=== PATIENT | male | born 1945 ===

== ENCOUNTER 2018-03-24 18:16 | Emergency (ER) | payer MEDICARE ==
[2018-03-24 18:25] VITALS: RESP 18
--- NOTE | 2018-03-24 18:58 | ED ---
Male Urogenital HPI - General Chief complaint: Urogenital Stated complaint: Urinating blood Time Seen by Provider: 03/24/18 18:40 Source: patient, RN notes reviewed, old records reviewed Mode of arrival: ambulatory Limitations: no limitations - History of Present Illness Initial comments: This is a 72-year-old male the ER for evaluation of recent Miller catheter placement now hematuria. Patient has no history of hematuria, patient was told fully was placed for prostate type issues, patient does catheterize himself continually for increased post void volume. Patient denies any fevers no significant abdominal pain currently he just noticed blood in the urine this morning. Again patient is on blood thinners. MD Complaint: dysuria (Hematuria) -: hour(s) Location: abdomen (No pain) Radiation: none Severity: mild Severity scale (1-10): 2 Quality: aching Consistency: intermittent Improves with: urination Worsens with: none trauma (Miller placement), indwelling catheter Reports: blood in urine - Related Data Home Medications Medication Instructions Recorded Confirmed Apixaban [Eliquis] 5 mg PO BID 03/24/18 03/24/18 Atorvastatin [Lipitor] 20 mg PO HS 03/24/18 03/24/18 Enalapril [Vasotec] 5 mg PO DAILY 03/24/18 03/24/18 Allergies Allergy/AdvReac Type Severity Reaction Status Date / Time Sulfa (Sulfonamide Allergy Unknown Verified 03/24/18 18:30 Antibiotics) Review of Systems ROS Statement: Those systems with pertinent positive or pertinent negative responses have been documented in the HPI. ROS Other: All systems not noted in ROS Statement are negative. Past Medical History Additional Past Medical History / Comment(s): IDC Pt states he had a vertebre burst states he is numb in the left leg and hips. History of Any Multi-Drug Resistant Organisms: C-DIFF Date of last positivie culture/infection: 2008 MDRO Source:: stool Past Surgical History: Back Surgery Additional Past Surgical History / Comment(s): bilateral ankle repair Past Psychological History: No Psychological Hx Reported Smoking Status: Never smoker Past Alcohol Use History: Occasional Past Drug Use History: None Reported General Exam Limitations: no limitations General appearance: alert, in no apparent distress Head exam: Present: atraumatic, normocephalic, normal inspection Eye exam: Present: normal appearance, PERRL, EOMI. Absent: scleral icterus, conjunctival injection, periorbital swelling ENT exam: Present: normal exam, mucous membranes moist Neck exam: Present: normal inspection. Absent: tenderness, meningismus, lymphadenopathy Respiratory exam: Present: normal lung sounds bilaterally. Absent: respiratory distress, wheezes, rales, rhonchi, stridor Cardiovascular Exam: Present: regular rate, normal rhythm, normal heart sounds. Absent: systolic murmur, diastolic murmur, rubs, gallop, clicks GI/Abdominal exam: Present: soft, normal bowel sounds. Absent: distended, tenderness, guarding, rebound, rigid Extremities exam: Present: normal inspection, full ROM, normal capillary refill. Absent: tenderness, pedal edema, joint swelling, calf tenderness Back exam: Present: normal inspection Neurological exam: Present: alert, oriented X3, CN II-XII intact Psychiatric exam: Present: normal affect, normal mood Skin exam: Present: warm, dry, intact, normal color. Absent: rash Course Vital Signs 03/24/18 03/24/18 18:20 20:32 Temperature 98.1 F 97.8 F Pulse Rate 89 80 Respiratory 18 18 Rate Blood Pressure 131/85 137/85 O2 Sat by Pulse 96 93 L Oximetry - Reevaluation(s) Reevaluation #1: Medical record is reviewed Patient is putting out blood in the urine, no clots, patient's on blood thinners , urine has gone clear patient has no complaints Medical Decision Making - Medical Decision Making 72-year-old male the ER for evaluation presented with blood in his urine, pain in his urine has. At this time, patient encouraged increased fluid intake. Patient can be discharged home - Lab Data Lab Results 03/24/18 Range/Units 19:18 Urine Color Red Urine Appearance Cloudy (Clear) Urine pH 5.5 (5.0-8.0) Ur Specific [place] 1.015 (1.001-1.035) Urine Protein 1+ H (Negative) Urine Glucose (UA) Negative (Negative) Urine Ketones Trace H (Negative) Urine Blood Large H (Negative) Urine Nitrite Negative (Negative) Urine Bilirubin Negative (Negative) Urine Urobilinogen <2.0 (<2.0) mg/dL Ur Leukocyte Esterase Moderate H (Negative) Urine RBC >182 H (0-5) /hpf Urine WBC >182 H (0-5) /hpf Disposition Clinical Impression: Hematuria, Coagulopathy, Indwelling Miller catheter present Disposition: HOME SELF-CARE Condition: Good Instructions: Hematuria (ED) Is patient prescribed a controlled substance at d/c from ED?: No Referrals: Sachin Gilbert MD [Primary Care Provider] - 1-2 days
[2018-03-24 19:50] LABS: Appearance,Urine Cloudy (Clear); Bilirubin,Urine Negative (Negative); Blood,Urine Large (Negative); Color,Urine Red; Glucose,Urine (UA) Negative (Negative); Ketones,Urine Trace (Negative); Leukocyte Esterase,Urine Moderate (Negative); Nitrite,Urine Negative (Negative); PH, Urine 5.5 (5.0-8.0); Protein,Urine 1+ (Negative); RBC,Urine >182 /hpf (0-5); Specific Gravity,Urine 1.015 (1.001-1.035); Urobilinogen,Urine <2.0 mg/dL (<2.0); WBC,Urine >182 /hpf (0-5)
[2018-03-24 20:33] VITALS: BP 137/85; PULSE 80; TEMP 97.8
== END 2018-03-24 20:33 | disposition home or self-care (01) ==
LOC: EC 18:16
DX: D68.9 Coagulation defect, unspecified (principal); R31.9 Hematuria, unspecified; R30.0 Dysuria; Z88.2 Allergy status to sulfonamides; Z79.01 Long term (current) use of anticoagulants; Z79.899 Other long term (current) drug therapy; Z96.0 Presence of urogenital implants
CPT/HCPCS: 81001; 87077; 87086; 87186; 99284

== ENCOUNTER 2018-09-06 17:19 | Emergency (ER) | payer MEDICARE ==
[2018-09-06 17:26] VITALS: RESP 18
--- NOTE | 2018-09-06 17:52 | ED ---
General Adult HPI - General Chief complaint: Urogenital Stated complaint: poss bladder infection Time Seen by Provider: 09/06/18 17:27 Source: patient Mode of arrival: ambulatory Limitations: no limitations - History of Present Illness Initial comments: Patient is a 72-year-old male who presents with a chief complaint of possible urinary tract infection. The patient has a history of a back injury which left him none below the waist, and requiring him to straight cath since 2008. Patient states that he does not really get urinary tract infections. He states that over the last 3 days or so he has had a followed her to his urine, and intermittent chills and nausea. He cannot identify an inciting incident other than this requires straight cath, no aggravating or alleviating factors. - Related Data Home Medications Medication Instructions Recorded Confirmed Apixaban [Eliquis] 5 mg PO BID 03/24/18 09/06/18 Atorvastatin [Lipitor] 20 mg PO HS 03/24/18 09/06/18 Enalapril [Vasotec] 5 mg PO DAILY 03/24/18 09/06/18 Previous Rx's Medication Instructions Recorded Acetaminophen Tab [Tylenol Tab] 1,000 mg PO Q6HR #30 tablet 09/06/18 Cephalexin [Keflex] 500 mg PO Q6HR #28 cap 09/06/18 Allergies Allergy/AdvReac Type Severity Reaction Status Date / Time Sulfa (Sulfonamide Allergy Unknown Verified 09/06/18 17:44 Antibiotics) Childhood Review of Systems ROS Statement: Those systems with pertinent positive or pertinent negative responses have been documented in the HPI. ROS Other: All systems not noted in ROS Statement are negative. Gastrointestinal: Reports: nausea Genitourinary: Reports: other (Final smell) Past Medical History Past Medical History: Deep Vein Thrombosis (DVT), Hyperlipidemia, Hypertension, Renal Disease Additional Past Medical History / Comment(s): pt self caths. Pt states he had a vertebre burst states he is numb in the left leg and hips. History of Any Multi-Drug Resistant Organisms: C-DIFF Date of last positivie culture/infection: 2008 MDRO Source:: stool Past Surgical History: Back Surgery Additional Past Surgical History / Comment(s): bilateral ankle repair Past Psychological History: No Psychological Hx Reported Smoking Status: Never smoker Past Alcohol Use History: Occasional Past Drug Use History: None Reported General Exam Limitations: no limitations General appearance: alert, in no apparent distress Head exam: Present: atraumatic, normocephalic Eye exam: Present: normal appearance ENT exam: Present: normal exam Neck exam: Present: normal inspection Respiratory exam: Present: normal lung sounds bilaterally. Absent: respiratory distress, wheezes Cardiovascular Exam: Present: regular rate, normal rhythm GI/Abdominal exam: Present: soft. Absent: distended, tenderness Rectal exam: Present: deferred Extremities exam: Present: normal inspection Back exam: Present: normal inspection Neurological exam: Present: alert, oriented X3 Psychiatric exam: Present: normal affect, normal mood Skin exam: Present: warm, dry, intact Course Vital Signs 09/06/18 17:20 Temperature 99.3 F Pulse Rate 95 Respiratory 18 Rate Blood Pressure 128/75 O2 Sat by Pulse 94 L Oximetry Medical Decision Making - Medical Decision Making A presents with chief complaint of foul-smelling urine. On initial evaluation, vitals are stable, patient is in no acute distress. Patient reevaluated basic labs including urinalysis. Patient does not have good feeling below the belt secondary to an injury. He denies any chest pain, shortness of breath or exertional shortness of breath. 6:52 PM Laboratory evaluation shows stable renal function is reported, there is evidence of urinary tract infection. Patient started on Keflex and instructed to use Tylenol for fevers. He is instructed to follow up with primary care 1-2 days, return to the ED if symptoms worsen or change. - Lab Data Result diagrams: 09/06/18 17:45 09/06/18 17:45 Lab Results 09/06/18 09/06/18 09/06/18 Range/Units 17:45 17:45 18:05 WBC 16.6 H (3.8-10.6) k/uL RBC 4.79 (4.30-5.90) m/uL Hgb 13.6 (13.0-17.5) gm/dL Hct 40.7 (39.0-53.0) % MCV 85.0 (80.0-100.0) fL MCH 28.3 (25.0-35.0) pg MCHC 33.4 (31.0-37.0) g/dL RDW 15.9 H (11.5-15.5) % Plt Count 166 (150-450) k/uL Neutrophils % 90 % Lymphocytes % 4 % Monocytes % 4 % Eosinophils % 0 % Basophils % 0 % Neutrophils # 15.0 H (1.3-7.7) k/uL Lymphocytes # 0.7 L (1.0-4.8) k/uL Monocytes # 0.7 (0-1.0) k/uL Eosinophils # 0.0 (0-0.7) k/uL Basophils # 0.0 (0-0.2) k/uL Sodium 134 L (137-145) mmol/L Potassium 4.5 (3.5-5.1) mmol/L Chloride 103 (98-107) mmol/L Carbon Dioxide 23 (22-30) mmol/L Anion Gap 8 mmol/L BUN 25 H (9-20) mg/dL Creatinine 1.49 H (0.66-1.25) mg/dL Est GFR (CKD-EPI)AfAm 54 (>60 ml/min/1.73 sqM) Est GFR (CKD-EPI)NonAf 47 (>60 ml/min/1.73 sqM) Glucose 164 H (74-99) mg/dL Calcium 8.7 (8.4-10.2) mg/dL Urine Color Yellow Urine Appearance Clear (Clear) Urine pH 5.5 (5.0-8.0) Ur Specific [place] 1.008 (1.001-1.035) Urine Protein 1+ H (Negative) Urine Glucose (UA) Negative (Negative) Urine Ketones 1+ H (Negative) Urine Blood Moderate H (Negative) Urine Nitrite Positive (Negative) Urine Bilirubin Negative (Negative) Urine Urobilinogen <2.0 (<2.0) mg/dL Ur Leukocyte Esterase Large H (Negative) Urine RBC 4 (0-5) /hpf Urine WBC 31 H (0-5) /hpf Urine WBC Clumps Few H (None) /hpf Amorphous Sediment Rare H (None) /hpf Urine Bacteria Many H (None) /hpf Disposition Clinical Impression: UTI (urinary tract infection) Disposition: HOME SELF-CARE Condition: Good Instructions (If sedation given, give patient instructions): Urinary Tract Infection in Men (ED) Prescriptions: Cephalexin [Keflex] 500 mg PO Q6HR #28 cap Acetaminophen Tab [Tylenol Tab] 1,000 mg PO Q6HR #30 tablet Is patient prescribed a controlled substance at d/c from ED?: No Referrals: Sachin Gilbert MD [Primary Care Provider] - 1-2 days
[2018-09-06 18:13] LABS: Amorphous Sediment,Urine Rare /hpf; Appearance,Urine Clear (Clear); Bacteria,Urine Many /hpf; Bilirubin,Urine Negative (Negative); Blood,Urine Moderate (Negative); Color,Urine Yellow; Glucose,Urine (UA) Negative (Negative); Ketones,Urine 1+ (Negative); Leukocyte Esterase,Urine Large (Negative); Nitrite,Urine Positive (Negative); PH, Urine 5.5 (5.0-8.0); Protein,Urine 1+ (Negative); RBC,Urine 4 /hpf (0-5); Specific Gravity,Urine 1.008 (1.001-1.035); Urobilinogen,Urine <2.0 mg/dL (<2.0); WBC,Urine 31 /hpf (0-5)
[2018-09-06 18:18] LABS: Basophils % (A) 0 %; Eosinophils % (A) 0 %; HCT 40.7 % (39.0-53.0); HGB 13.6 gm/dL (13.0-17.5); Lymphocytes # (A) 0.7 k/uL (1.0-4.8); Lymphocytes % (A) 4 %; MCH 28.3 pg (25.0-35.0); MCHC 33.4 g/dL (31.0-37.0); Mean Platelet Volume 8.3; Monocytes # (A) 0.7 k/uL (0-1.0); Monocytes % (A) 4 %; Neutrophils % (A) 90 %; Platelet Count 166 k/uL (150-450); RBC 4.79 m/uL (4.30-5.90); RDW 15.9 % (11.5-15.5); WBC 16.6 k/uL (3.8-10.6)
[2018-09-06 18:22] LABS: Calcium 8.7 mg/dL (8.4-10.2); Potassium 4.5 mmol/L (3.5-5.1)
[2018-09-06 19:05] VITALS: BP 120/75; PULSE 92; TEMP 98.9
== END 2018-09-06 19:05 | disposition home or self-care (01) ==
LOC: EC 17:19
DX: N39.0 Urinary tract infection, site not specified (principal); E78.5 Hyperlipidemia, unspecified; I10 Essential (primary) hypertension; Z86.718 Personal history of other venous thrombosis and embolism; Z79.01 Long term (current) use of anticoagulants; Z79.899 Other long term (current) drug therapy; Z88.2 Allergy status to sulfonamides
CPT/HCPCS: 36415; 80048; 81001; 85025; 87077; 87086; 87186; 99283

== ENCOUNTER → 2019-02-22 | Outpatient (CLI) | payer MEDICARE ==
--- NOTE | 2019-02-22 16:03 | US ---
EXAMINATION TYPE: US kidneys/renal and bladder DATE OF EXAM: 02/22/2019 COMPARISON: NONE CLINICAL HISTORY: N18.3 CHRONIC KIDNEY DISEASE. EXAM MEASUREMENTS: Right Kidney: 9.9 x 4.4 x 5.4 cm Left Kidney: 10.0 x 4.3 x 4.7 cm Right Kidney: 4. 3 x 2.7 x 2.5cm cyst, echogenic foci, probable stone measuring 0.4 x 0.3 x 0.4cm Left Kidney: 6.5 x 7.1 x 6.5cm cyst Bladder: possible thickened wall Oval 4.3 cm partially exophytic otherwise simple appearing cyst right kidney. Cannot exclude nonobstr ucting 4 mm calculus midpole level right kidney The urinary bladder is satisfactorily distended. Ash dder wall is concentrically mild to moderately thickened up to 8 mm Bilateral ureteral jets are not s een. Increased cortical echogenicity and cortical thinning left kidney. There is 7.0 cm thin-walled e xophytic cyst upper pole left kidney. IMPRESSION: Abnormal bladder wall thickening, correlate for outlet obstruction related to BPH otherwi se other etiologies need to be considered. No hydronephrosis is noted bilaterally.
== END | disposition home or self-care (01) ==
LOC: RADUSWWP 15:00
PROVIDERS: ATTEND Internal Medicine
DX: R93.41 Abnormal radiologic findings on diagnostic imaging of renal pelvis, ureter, or bladder (principal); N18.3 Chronic kidney disease, stage 3 (moderate)
CPT/HCPCS: 76770

== ENCOUNTER → 2022-07-19 | Outpatient (CLI) | payer MEDICARE ==
[2022-07-19 15:45] LABS: Basophils # (A) 0.11 X 10*3/uL (0.00-0.10); Eosinophils # (A) 0.16 X 10*3/uL (0.04-0.35); Eosinophils % (A) 2.8 %; HGB 14.5 g/dL (13.0-17.0); Immature Grans, Automated 0.4 %; Lymphocytes # (A) 1.66 X 10*3/uL (0.90-5.00); Lymphocytes % (A) 29.4 %; MCH 30.9 pg (27.0-32.0); MCHC 33.7 g/dL (32.0-37.0); MCV 91.7 fL (80.0-97.0); Mean Platelet Volume 11.1 fL (9.5-12.2); Monocytes # (A) 0.48 X 10*3/uL (0.20-1.00); Monocytes % (A) 8.5 %; NRBC Per 100 WBC 0 /100 WBCS (0.0-0.0); Neutrophils # (A) 3.21 X 10*3/uL (1.80-7.70); Neutrophils % (A) 56.9 %; Platelet Count 189 X 10*3/uL (140-440); RBC 4.69 X 10*6/uL (4.40-5.60); RDW 13.2 % (11.5-14.5); WBC 5.64 X 10*3/uL (4.50-10.00)
[2022-07-19 16:01] LABS: ALT 20 U/L (10-49); AST 22 U/L (14-35); Albumin 4.2 g/dL (3.8-4.9); Albumin/Globulin Ratio 1.62 (1.60-3.17); Alkaline Phosphatase 68 U/L (41-126); BUN/Creat Ratio 13.29 Ratio (12.00-20.00); Blood Urea Nitrogen 18.6 mg/dL (9.0-27.0); Calcium 9.2 mg/dL (8.7-10.3); Carbon Dioxide 25.8 mmol/L (20.0-27.5); Chloride 107 mmol/L (96-109); Globulin 2.6 g/dL (1.6-3.3); Glucose 103 mg/dL (70-110); LDL Cholesterol,Calculated 61.8 mg/dL (0.0-131.0); Non-African American GFR(CKD) 49.1 (60.0-200.0); Sodium 140 mmol/L (135-145); Total Protein 6.8 g/dL (6.2-8.2)
== END | disposition home or self-care (01) ==
LOC: LABWHC1 08:08
PROVIDERS: ATTEND Family Medicine
DX: I10 Essential (primary) hypertension (principal); E78.2 Mixed hyperlipidemia
CPT/HCPCS: 36415; 80053; 80061; 85025

== ENCOUNTER → 2022-09-18 | Outpatient (CLI) | payer MEDICARE | END | disposition home or self-care (01) | LOC: LABWHC1 11:25 | PROVIDERS: ATTEND Urology | DX: R97.20 Elevated prostate specific antigen [PSA] (principal) | CPT/HCPCS: 36415; 84153 ==

== ENCOUNTER → 2022-11-13 | Outpatient (CLI) | payer MEDICARE ==
--- NOTE | 2022-11-15 12:43 | MR ---
EXAMINATION TYPE: MR lumbar spine wo con DATE OF EXAM: 11/13/2022 COMPARISON: Plain films 10/11/2022 HISTORY: Low back pain into lower extremities CONTRAST: 0 mL intravenous Gadavist. TECHNIQUE: Multiplanar, multisequence images of the lumbar spine were acquired. FINDINGS: There appears to be prior fixation of L2-L4. Significant susceptibility artifact is presen t making evaluation nondiagnostic to this region. Cord terminates at the T12-L1 level. L5-S1: There is a grade 1 approaching grade 2 spondylolisthesis of L5 anteriorly on S1. There is loss of disc at this level. Endplate changes are evident. No AP spinal canal stenosis is present. There a ppears to be severe bilateral foraminal narrowing. Correlate with radicular symptoms. L4-L5: Disc space narrowing is present. Residual disc bulge is present. No AP spinal canal stenosis p resent. Foramina are patent. L3-L4, L2-3: These levels are essentially nondiagnostic. Obvious spinal canal stenosis is not evident . Foramina cannot be evaluated. L1-L2: No significant disc bulge or disc herniation. No spinal canal stenosis. No foraminal stenosi s. T12-L1: No significant disc bulge or disc herniation. No spinal canal stenosis. No foraminal stenos is. IMPRESSION: 1. Extensive lumbar surgery L2-L4 which makes these levels essentially nondiagnostic. 2. Degenerative disc changes with residual disc bulge L4-5. AP spinal canal stenosis is not identifie d in the axial plane. Some lateral canal narrowing could be considered 3. Severe foraminal stenosis L5-S1. There is a grade 1 to grade 2 spondylolisthesis at this level.
== END | disposition home or self-care (01) ==
LOC: RADMRIMAIN 10:30
PROVIDERS: ATTEND Orthopaedic Surgery Orthopaedic Surgery of the Spine
DX: M51.36 Other intervertebral disc degeneration, lumbar region (principal); M47.816 Spondylosis without myelopathy or radiculopathy, lumbar region; M43.16 Spondylolisthesis, lumbar region; M62.561 Muscle wasting and atrophy, not elsewhere classified, right lower leg; M62.830 Muscle spasm of back; R26.9 Unspecified abnormalities of gait and mobility; M99.73 Connective tissue and disc stenosis of intervertebral foramina of lumbar region; Z98.1 Arthrodesis status; R53.1 Weakness
CPT/HCPCS: 72148

== ENCOUNTER → 2023-08-01 | Outpatient (CLI) | payer MEDICARE ==
[2023-08-01 11:11] LABS: ALT 20 U/L (10-49); AST 24 U/L (14-35); Albumin 4.3 g/dL (3.8-4.9); Albumin/Globulin Ratio 1.59 Ratio (1.60-3.17); Alkaline Phosphatase 65 U/L (41-126); BUN/Creat Ratio 15.44 Ratio (12.00-20.00); Blood Urea Nitrogen 27.8 mg/dL (9.0-27.0); Calcium 9.8 mg/dL (8.7-10.3); Carbon Dioxide 22.9 mmol/L (21.6-31.8); Chloride 105 mmol/L (96-109); Globulin 2.7 g/dL (1.6-3.3); Glucose 111 mg/dL (70-110); LDL Cholesterol,Calculated 91.1 mg/dL (0.0-131.0); Potassium 5.1 mmol/L (3.5-5.5); Sodium 141 mmol/L (135-145); Total Bilirubin 0.6 mg/dL (0.3-1.2); Uric Acid 9.2 mg/dL (3.7-8.7)
[2023-08-01 14:31] LABS: Basophils # (A) 0.08 X 10*3/uL (0.00-0.10); Basophils % (A) 1.2 %; Eosinophils # (A) 0.23 X 10*3/uL (0.04-0.35); Eosinophils % (A) 3.5 %; HCT 45.1 % (39.6-50.0); HGB 14.7 g/dL (13.0-17.0); Lymphocytes # (A) 1.87 X 10*3/uL (0.90-5.00); Lymphocytes % (A) 28.3 %; MCHC 32.6 g/dL (32.0-37.0); Mean Platelet Volume 11.6 FL (9.5-12.2); Monocytes # (A) 0.51 X 10*3/uL (0.20-1.00); Monocytes % (A) 7.7 %; NRBC Per 100 WBC 0 X 10*3/uL (0.00-0.01); Platelet Count 193 X 10*3/uL (140-440); WBC 6.61 X 10*3/uL (4.50-10.00)
== END | disposition home or self-care (01) ==
LOC: LABWHC1 07:15
PROVIDERS: ATTEND Internal Medicine
DX: Z11.59 Encounter for screening for other viral diseases (principal); I10 Essential (primary) hypertension; M10.9 Gout, unspecified; R73.01 Impaired fasting glucose
CPT/HCPCS: 36415; 80053; 80061; 83036; 84443; 84550; 85025; 86803

== ENCOUNTER → 2023-10-21 | Outpatient (CLI) | payer MEDICARE ==
[2023-10-21 16:40] LABS: Appearance,Urine Cloudy (Clear); Bacteria,Urine Many /hpf; Bilirubin,Urine Negative (Negative); Blood,Urine Trace (Negative); Color,Urine Colorless; Glucose,Urine (UA) Negative (Negative); Ketones,Urine Negative (Negative); Leukocyte Esterase,Urine Large (Negative); Nitrite,Urine Positive (Negative); PH, Urine 5.5 (5.0-8.0); Protein,Urine 1+ (Negative); RBC,Urine 2 /hpf (0-5); Squamous Epithelial Cell,Urine <1 /hpf (0-4); Urobilinogen,Urine <2.0 mg/dL (<2.0); WBC,Urine >182 /hpf (0-5)
[2023-10-21 16:42] LABS: Protein/Creatinine Ratio,Urine 0.965
[2023-10-21 18:15] LABS: Basophils # (A) 0.08 X 10*3/uL (0.00-0.10); Basophils % (A) 1.2 %; Eosinophils % (A) 1.5 %; HCT 40.3 % (39.6-50.0); HGB 13.6 g/dL (13.0-17.0); Lymphocytes # (A) 1.75 X 10*3/uL (0.90-5.00); Lymphocytes % (A) 26.1 %; MCH 30.4 pg (27.0-32.0); MCHC 33.7 g/dL (32.0-37.0); Mean Platelet Volume 11.9 FL (9.5-12.2); NRBC Per 100 WBC 0 X 10*3/uL (0.00-0.01); Neutrophils # (A) 4.36 X 10*3/uL (1.80-7.70); Neutrophils % (A) 64.9 %; Platelet Count 185 X 10*3/uL (140-440); RBC 4.48 X 10*6/uL (4.40-5.60); WBC 6.71 X 10*3/uL (4.50-10.00)
[2023-10-21 18:25] LABS: ALT 15 U/L (10-49); AST 19 U/L (14-35); Albumin 4.2 g/dL (3.8-4.9); Alkaline Phosphatase 78 U/L (41-126); BUN/Creat Ratio 19.56 Ratio (12.00-20.00); Blood Urea Nitrogen 31.3 mg/dL (9.0-27.0); Carbon Dioxide 22.7 mmol/L (21.6-31.8); Chloride 103 mmol/L (96-109); Globulin 2.8 g/dL (1.6-3.3); Glucose 154 mg/dL (70-110); Potassium 4.6 mmol/L (3.5-5.5); Sodium 137 mmol/L (135-145); Total Bilirubin 0.4 mg/dL (0.3-1.2)
== END | disposition home or self-care (01) ==
LOC: LABWHC1 14:29
PROVIDERS: ATTEND Internal Medicine
DX: N18.31 Chronic kidney disease, stage 3a (principal)
CPT/HCPCS: 36415; 80053; 81001; 82570; 84156; 85025; 87086

== ENCOUNTER → 2023-11-19 | Outpatient (CLI) | payer MEDICARE ==
[2023-11-19 16:36] LABS: Appearance,Urine Cloudy (Clear); Bacteria,Urine Occasional /hpf; Bilirubin,Urine Negative (Negative); Blood,Urine Trace (Negative); Color,Urine Colorless; Glucose,Urine (UA) Negative (Negative); Ketones,Urine Negative (Negative); Leukocyte Esterase,Urine Large (Negative); Mucus,Urine Rare /hpf; Nitrite,Urine Negative (Negative); Protein,Urine Trace (Negative); RBC,Urine 3 /hpf (0-5); Specific Gravity,Urine 1.006 (1.001-1.035); Urobilinogen,Urine <2.0 mg/dL (<2.0); WBC,Urine >182 /hpf (0-5)
[2023-11-19 16:44] LABS: Creatinine,Urine Random 28.5 mg/dL; Protein/Creatinine Ratio,Urine 1.474
[2023-11-19 18:22] LABS: Basophils # (A) 0.07 X 10*3/uL (0.00-0.10); Basophils % (A) 0.9 %; Eosinophils # (A) 0.17 X 10*3/uL (0.04-0.35); Eosinophils % (A) 2.2 %; HCT 40.6 % (39.6-50.0); HGB 13.6 g/dL (13.0-17.0); Lymphocytes # (A) 1.73 X 10*3/uL (0.90-5.00); Lymphocytes % (A) 22.9 %; MCH 30.6 pg (27.0-32.0); MCHC 33.5 g/dL (32.0-37.0); MCV 91.4 FL (80.0-97.0); Mean Platelet Volume 11.3 FL (9.5-12.2); Monocytes # (A) 0.64 X 10*3/uL (0.20-1.00); Monocytes % (A) 8.5 %; NRBC Per 100 WBC 0 X 10*3/uL (0.00-0.01); Neutrophils % (A) 64.8 %; Platelet Count 220 X 10*3/uL (140-440); RBC 4.44 X 10*6/uL (4.40-5.60); RDW 12.8 % (11.5-14.5); WBC 7.56 X 10*3/uL (4.50-10.00)
[2023-11-19 18:59] LABS: ALT 18 U/L (10-49); AST 24 U/L (14-35); Albumin 4.1 g/dL (3.8-4.9); Albumin/Globulin Ratio 1.41 Ratio (1.60-3.17); Alkaline Phosphatase 78 U/L (41-126); BUN/Creat Ratio 18.12 Ratio (12.00-20.00); Calcium 9.2 mg/dL (8.7-10.3); Carbon Dioxide 24.4 mmol/L (21.6-31.8); Chloride 105 mmol/L (96-109); Globulin 2.9 g/dL (1.6-3.3); Glucose 100 mg/dL (70-110); Potassium 5.7 mmol/L (3.5-5.5); Sodium 139 mmol/L (135-145); Total Bilirubin 0.3 mg/dL (0.3-1.2)
[2023-11-19 19:29] LABS: Magnesium 2.1 mg/dL (1.5-2.4); Uric Acid 8.9 mg/dL (3.7-8.7)
== END | disposition home or self-care (01) ==
LOC: LABWHC1 14:14
PROVIDERS: ATTEND Internal Medicine
DX: N02.B9 Other recurrent and persistent immunoglobulin A nephropathy (principal); N18.31 Chronic kidney disease, stage 3a
CPT/HCPCS: 36415; 80053; 81001; 82570; 83735; 84156; 84550; 85025; 87077; 87086; 87186

== ENCOUNTER → 2023-11-27 | Outpatient (CLI) | payer MEDICARE ==
--- NOTE | 2023-11-27 16:47 | US ---
EXAMINATION TYPE: US kidneys/renal and bladder DATE OF EXAM: 11/27/2023 COMPARISON: 02/22/2019 CLINICAL INDICATION: Male, 78 years old with history of N02.B9 RECURRENT AND PERSISTENT IMMUNOGLOBULI N A N; CKD per order. Hx cysts. EXAM MEASUREMENTS: Right Kidney: 9.8 x 5.4 x 6.1 cm Left Kidney: 10.2 x 4.7 x 5.2 cm Right Kidney: Cortex appears thin. Anechoic area with hypoechoic border seen: 5.9 x 4.9 x 3.4 cm lo cated centrally at the level of the renal pelvis. Previously measuring 4.3 x 2.7 x 2.5 cm. Left Kidney: Cortex appears thin. Hypoechoic area seen lower: 1.6 x 1.3 x 1.4 cm. Not seen in 2019. Cyst at the upper: 4.3 x 2.0 x 2.9 cm. Decreased in size from the previous 6.5 cm cyst. Bladder: Internal echoes/debris seen in the bladder Bilateral Jets seen: yes IMPRESSION: 1. No hydronephrosis. 2. A large centrally located cystic lesion measuring 5.9 cm near the hilum of the right kidney (versu s 4.3 cm, previously). A hypoechoic margin. Represent some soft tissue thickening or dependent debris . Consider further kidney mass protocol CT or MRI for further evaluation. 3. A hypoechoic lesion at the lower pole of the left kidney measures 1.6 cm, not seen in 2019, can al so be further evaluated on the follow-up exam. Debris-filled cyst or small solid mass are considerati ons. 4. The previous left upper pole renal cyst has decreased in size from 6.5 cm now measuring 4.3 cm. 5. Floating echoes/debris within the bladder. Correlate with urinalysis.
== END | disposition home or self-care (01) ==
LOC: RADUSWWP 14:02
PROVIDERS: ATTEND Internal Medicine
DX: N02.B9 Other recurrent and persistent immunoglobulin A nephropathy
CPT/HCPCS: 76770

== ENCOUNTER → 2023-11-28 | Outpatient (CLI) | payer MEDICARE ==
[2023-11-28 19:15] LABS: Albumin 4.3 g/dL (3.8-4.9); BUN/Creat Ratio 17.53 Ratio (12.00-20.00); Blood Urea Nitrogen 33.3 mg/dL (9.0-27.0); Calcium 9.6 mg/dL (8.7-10.3); Carbon Dioxide 22.6 mmol/L (21.6-31.8); Chloride 104 mmol/L (96-109); Glucose 102 mg/dL (70-110); Phosphorus 3.8 mg/dL (2.4-5.1); Potassium 5.4 mmol/L (3.5-5.5); Sodium 138 mmol/L (135-145)
== END | disposition home or self-care (01) ==
LOC: LABWHC1 13:58
PROVIDERS: ATTEND Internal Medicine
DX: N02.B9 Other recurrent and persistent immunoglobulin A nephropathy (principal)
CPT/HCPCS: 36415; 80069

== ENCOUNTER → 2024-01-23 | Outpatient (CLI) | payer MEDICARE ==
--- NOTE | 2024-01-23 11:52 | US ---
EXAMINATION TYPE: US kidneys/renal and bladder DATE OF EXAM: 01/23/2024 COMPARISON: 2 months prior: 11/27/23 CLINICAL INDICATION: Male, 78 years old with history of N02.89 IGA NEPHROPATHY; CKD TECHNIQUE: Grayscale and color Doppler imaging of the bilateral kidneys and urinary bladder: FINDINGS: EXAM MEASUREMENTS: Right Kidney: 10.6x5.6x5.6 cm Left Kidney: 11.3x5.6x6.2 cm Right Kidney: cyst: 5.9x3.0x4.8cm , no hydronephrosis or renal calculus. Left Kidney: upper pole cyst: 3.1x1.9x2.1cm, inf pole cyst on prior not seen on today's exam no hydr onephrosis or renal calculus. Bladder: wnl Bilateral Jets seen: Yes There is no evidence for hydronephrosis at this point in time. No nephrolithiasis is seen. No elvi s are identified. The urinary bladder is anechoic. IMPRESSION: No evidence for acute process. Simple appearing renal cysts. [facility], , 01/23/2024 11:50 AM
== END | disposition home or self-care (01) ==
LOC: RADUSWWP 10:24
PROVIDERS: ATTEND Internal Medicine
DX: N02.B9 Other recurrent and persistent immunoglobulin A nephropathy (principal); N28.1 Cyst of kidney, acquired; N18.30 Chronic kidney disease, stage 3 unspecified
CPT/HCPCS: 76770

== ENCOUNTER → 2024-03-04 | Outpatient (CLI) | payer MEDICARE ==
[2024-03-04 18:00] LABS: Appearance,Urine Cloudy (Clear); Bacteria,Urine Moderate /hpf; Bilirubin,Urine Negative (Negative); Blood,Urine Trace (Negative); Color,Urine Colorless; Glucose,Urine (UA) Negative (Negative); Ketones,Urine Negative (Negative); Leukocyte Esterase,Urine Large (Negative); Mucus,Urine Rare /hpf; Nitrite,Urine Negative (Negative); Protein,Urine Trace (Negative); RBC,Urine 10 /hpf (0-5); Specific Gravity,Urine 1.011 (1.001-1.035); Squamous Epithelial Cell,Urine 1 /hpf (0-4); Urobilinogen,Urine <2.0 mg/dL (<2.0); WBC,Urine >182 /hpf (0-5)
== END | disposition home or self-care (01) ==
LOC: LABWHC1 16:09
PROVIDERS: ATTEND Internal Medicine
DX: N31.2 Flaccid neuropathic bladder, not elsewhere classified (principal)
CPT/HCPCS: 81001; 87086

== ENCOUNTER → 2024-03-18 | Outpatient (CLI) | payer MEDICARE ==
[2024-03-18 15:55] LABS: Appearance,Urine Clear (Clear); Bilirubin,Urine Negative (Negative); Blood,Urine Negative (Negative); Color,Urine Colorless; Glucose,Urine (UA) Negative (Negative); Ketones,Urine Negative (Negative); Leukocyte Esterase,Urine Negative (Negative); Nitrite,Urine Negative (Negative); Protein,Urine Negative (Negative); Specific Gravity,Urine 1.006 (1.001-1.035); Urobilinogen,Urine <2.0 mg/dL (<2.0)
== END | disposition home or self-care (01) ==
LOC: LABWHC1 14:35
PROVIDERS: ATTEND Internal Medicine
DX: N39.0 Urinary tract infection, site not specified (principal)
CPT/HCPCS: 81003; 87086

== ENCOUNTER → 2024-07-07 | Outpatient (CLI) | payer MEDICARE ==
[2024-07-07 15:50] LABS: Basophils # (A) 0.08 X 10*3/uL (0.00-0.10); Basophils % (A) 1.4 %; Eosinophils # (A) 0.15 X 10*3/uL (0.04-0.35); Eosinophils % (A) 2.7 %; HCT 42.4 % (39.6-50.0); HGB 13.9 g/dL (13.0-17.0); Lymphocytes # (A) 1.35 X 10*3/uL (0.90-5.00); Lymphocytes % (A) 23.9 %; MCHC 32.8 g/dL (32.0-37.0); MCV 91.4 FL (80.0-97.0); Mean Platelet Volume 11.5 FL (9.5-12.2); Monocytes # (A) 0.49 X 10*3/uL (0.20-1.00); Monocytes % (A) 8.7 %; NRBC Per 100 WBC 0 X 10*3/uL (0.00-0.01); Neutrophils # (A) 3.57 X 10*3/uL (1.80-7.70); Neutrophils % (A) 62.9 %; Platelet Count 209 X 10*3/uL (140-440); RBC 4.64 X 10*6/uL (4.40-5.60); RDW 13.2 % (11.5-14.5); WBC 5.66 X 10*3/uL (4.50-10.00)
[2024-07-07 15:54] LABS: ALT 17 U/L (10-49); AST 23 U/L (14-35); Albumin 4.1 g/dL (3.8-4.9); Albumin/Globulin Ratio 1.46 Ratio (1.60-3.17); Alkaline Phosphatase 75 U/L (41-126); BUN/Creat Ratio 18.12 Ratio (12.00-20.00); Blood Urea Nitrogen 30.8 mg/dL (9.0-27.0); Calcium 9.3 mg/dL (8.7-10.3); Carbon Dioxide 23.4 mmol/L (21.6-31.8); Chloride 106 mmol/L (96-109); Globulin 2.8 g/dL (1.6-3.3); Glucose 124 mg/dL (70-110); LDL Cholesterol,Calculated 89.7 mg/dL (0.0-131.0); Potassium 4.9 mmol/L (3.5-5.5); Sodium 140 mmol/L (135-145); Total Bilirubin 0.4 mg/dL (0.3-1.2); Total Protein 6.9 g/dL (6.2-8.2)
== END | disposition home or self-care (01) ==
LOC: LABWHC1 08:52
PROVIDERS: ATTEND Internal Medicine
DX: Z12.5 Encounter for screening for malignant neoplasm of prostate (principal); I10 Essential (primary) hypertension; N31.2 Flaccid neuropathic bladder, not elsewhere classified; E78.5 Hyperlipidemia, unspecified; R73.01 Impaired fasting glucose
CPT/HCPCS: 80061; 80053; 84443; 85025; 83036; 36415; G0103

== ENCOUNTER → 2024-10-14 | Outpatient (CLI) | payer MEDICARE | END | disposition home or self-care (01) | LOC: LABWHC1 14:03 | PROVIDERS: ATTEND Student in an Organized Health Care Education/Training Program | DX: S40.862A Insect bite (nonvenomous) of left upper arm, initial encounter (principal) | CPT/HCPCS: 36415; 86618 ==